=== PATIENT | male | born 1935 | race Caucasian/White ===

== ENCOUNTER 2016-10-21 20:30 | Emergency (ER) | payer MEDICARE, BC ==
[2016-10-21 21:09] VITALS: BP 111/53
--- NOTE | 2016-10-21 21:38 | UC ---
Lower Extremity/Ankle HPI - HPI Summary HPI Summary: about 3 hours ago, caught his foot in his pant and avulsed the nail of his left second digit. Currently on ASA, clopidogrel and coumadin due to vascular disease. Wound has continued to bleed despite light pressure and elevation. Diabetic, without foot sensation although has not been diagnosed as neuropathy. - History of Current Complaint Chief Complaint: UCLowerExtremity Stated Complaint: LEFT FOOT Time Seen by Provider: 10/21/16 21:36 Hx Obtained From: Patient, Family/Financial Analysis Consultant Onset/Duration: Sudden Onset Severity Initially: Moderate Severity Currently: Moderate Aggravating Factor(s): Standing Alleviating Factor(s): Elevation, Other - pressure - Risk Factors Gout Risk Factors: Negative DVT Risk Factors: Negative Septic Arthritis Risk Factor: Negative - Allergies/Home Medications Allergies/Adverse Reactions: Allergies Allergy/AdvReac Type Severity Reaction Status Date / Time Diazepam [From Valium] Allergy Severe LOW BLOOD Verified 10/21/16 21:09 PRESSURE AND "LOOPY" Home Medications: Home Medications Calcium Carbonate-Vitamin D [Calcium 500 + D] 1 tab PO 10/21/16 [History] Isosorbide Mononitrate ER TAB* [Imdur ER TAB*] 60 mg PO DAILY 10/21/16 [History Confirmed 10/21/16] Multiple Vitamins W/ Minerals [Ocuvite Eye Health Formul] 1 cap PO DAILY [History Confirmed 10/21/16] Spironolactone TAB* [Aldactone TAB*] 25 mg PO DAILY 10/21/16 [History Confirmed 10/21/16] PMH/Surg Hx/FS Hx/Imm Hx Endocrine History Of: Reports: Diabetes - type II Cardiovascular History Of: Reports: Cardiac Disorders - A-fib, Hypertension, Pacemaker/ICD - [id number], Congestive Heart Failure Psychological History Of: Reports: Anxiety - Surgical History Surgical History: Yes Surgery Procedure, Year, and Place: open heart -by pass, [facility]. cardiac stents x (since 1998), [facility]. pacemaker 2008, [facility]. cataract ablation 2008,. [facility],. [facility] 2014, [facility]. 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 Cardiovascular: Other - history of coronary artery disease. 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 Neurovascular: Decreased Sensation - both feet, with a history of amputations of digits of toes. Neurological: Weakness, Other - aphasic post stroke All Other Systems Reviewed And Are Negative: Yes Physical Exam Triage Information Reviewed: Yes Appearance: Ill-Appearing - elderly man, looks fatigued. Vital Signs: Initial Vital Signs Temp 98.3 F 10/21/16 21:04 Pulse 72 10/21/16 21:04 Resp 16 10/21/16 21:04 BP 111/53 10/21/16 21:04 Pulse Ox 100 10/21/16 21:04 Eyes: Positive: Conjunctiva Clear Neck: Positive: Supple Respiratory: Positive: Lungs clear Cardiovascular Exam: Other - irregular pulse. Cardiovascular: Positive: No Murmur Neurological: Positive: Alert Skin Exam: Other - left second digit with avulsion of the nail, steady ooze from lateral nail bed. Gelfoam and compressive dressing applied Lower Extremity Course/Dx - Course Course Of Treatment: gelfoam and light compressive dressing. - Differential Dx/Diagnosis Provider Diagnoses: nail avulsion, on anticoagulation. Discharge - Discharge Plan Condition: Stable Disposition: HOME Patient Education Materials: Nail Avulsion (ED) Additional Instructions: Follow up with Dr. Julian tomorrow as arranged. Hold tonight's warfarin and tomorrow morning's aspirin, but give clopidigrel in the morning. If you bleed through the dressing, please go to the emergency room for follow up.
[2016-10-21] MEDS ORDERED: Gelfoam 12-7 ADSORBABL SPONGE* 1 EA SPONGE ONE (21:57)
[2016-10-21] MEDS ORDERED: Gelfoam 12-7 ADSORBABL SPONGE* 1 EA SPONGE TOPICAL ONE (21:59)
== END 2016-10-21 22:49 | disposition home or self-care (01) ==
LOC: UCCORT 20:30
DX: S91.205A Unspecified open wound of left lesser toe(s) with damage to nail, initial encounter (principal); W22.8XXA Striking against or struck by other objects, initial encounter; Y93.9 Activity, unspecified; Y99.9 Unspecified external cause status; Z79.01 Long term (current) use of anticoagulants; Z79.82 Long term (current) use of aspirin; E11.9 Type 2 diabetes mellitus without complications; I48.91 Unspecified atrial fibrillation; I10 Essential (primary) hypertension; Z95.0 Presence of cardiac pacemaker; I50.9 Heart failure, unspecified; I25.10 Atherosclerotic heart disease of native coronary artery without angina pectoris; Z95.1 Presence of aortocoronary bypass graft; Z86.73 Personal history of transient ischemic attack (TIA), and cerebral infarction without residual deficits; Z88.8 Allergy status to other drugs, medicaments and biological substances
CPT/HCPCS: 99212; A9270-GY; G0463

== ENCOUNTER 2017-01-04 16:06 | Emergency (ER) | payer MEDICARE, BC ==
[2017-01-04 17:04] VITALS: BP 120/62
--- NOTE | 2017-01-04 17:38 | UC ---
General HPI - HPI Summary HPI Summary: sent here by PCP "for a cxr" for evaluation of "fluid in lungs" Denies Chest PAin and SOB---has had some swelling in legs but does weight himself daily and has not had any weight gain - History of Current Complaint Chief Complaint: UCLowerExtremity Stated Complaint: RT LEG SWELLING/WATER BLISTER Time Seen by Provider: 01/04/17 17:30 Hx Obtained From: Patient Onset/Duration: Gradual Onset, Lasting Days, Still Present Timing: Constant Onset Severity: Mild Current Severity: Mild Pain Intensity: 0 Associated Signs & Symptoms: Positive: Edema, SOB - baseline-usual. Negative: Chest Pain, Hemoptysis, Wheezing - Allergy/Home Medications Allergies/Adverse Reactions: Allergies Allergy/AdvReac Type Severity Reaction Status Date / Time Diazepam [From Valium] Allergy Severe LOW BLOOD Verified 01/04/17 16:55 PRESSURE AND "LOOPY" Home Medications: Home Medications Amoxicillin/Clavulanate TAB* [Augmentin TAB 875*] 2 tab PO BID 01/04/17 [ History Confirmed 01/04/17] PMH/Surg Hx/FS Hx/Imm Hx Previously Healthy: No Endocrine History: Diabetes Cardiovascular History: Cardiac Disease, Pacemaker/ICD, Congestive Heart Failure - Surgical History Surgical History: Yes Surgery Procedure, Year, and Place: open heart -by pass, [facility]. cardiac stents x 22(since 1998), [facility]. pacemaker 2008, [facility]. cataract ablation 2008,. L knee replacement 2006, [facility]. cataracts removal,. right great toe amputation 2014, [facility]. 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, [facility] - Family History Known Family History: Positive: Unknown - Social History Occupation: Retired Lives: With Family Alcohol Use: None Substance Use Type: None Smoking Status (MU): Never Smoked Tobacco Have You Smoked in the Last Year: No Review of Systems Constitutional: Negative Skin: Negative Eyes: Negative ENT: Negative Respiratory: Negative Cardiovascular: Negative Gastrointestinal: Negative Genitourinary: Negative Motor: Negative Neurovascular: Negative Musculoskeletal: Edema - both lower legs Neurological: Negative Psychological: Negative All Other Systems Reviewed And Are Negative: Yes Physical Exam Triage Information Reviewed: Yes Appearance: Ill-Appearing - chronic, Pain Distress - chronic illness, Thin Vital Signs: Initial Vital Signs Temp 97.2 F 01/04/17 16:56 Pulse 67 01/04/17 16:56 Resp 18 01/04/17 16:56 BP 120/62 01/04/17 16:56 Pulse Ox 100 01/04/17 16:56 Vital Signs Reviewed: Yes Eye Exam: Normal Eyes: Positive: Conjunctiva Clear ENT Exam: Normal ENT: Positive: Normal ENT inspection, Hearing grossly normal, Pharynx normal, TMs normal. Negative: Nasal congestion, Nasal drainage, Trismus, Muffled/ hoarse voice Dental Exam: Normal Neck exam: Normal Neck: Positive: Supple, Nontender Respiratory Exam: Normal Respiratory: Positive: Chest non-tender, No respiratory distress, No accessory muscle use, Rhonchi - right lung, Wheezing - right lung Cardiovascular Exam: Normal Cardiovascular: Positive: RRR, No Murmur, Pulses Normal, Brisk Capillary Refill Musculoskeletal Exam: Normal Musculoskeletal: Positive: Strength Intact, ROM Intact, Edema @ - both lower lungs Neurological Exam: Normal Neurological: Positive: Alert, Muscle Tone Normal Psychological Exam: Normal Psychological: Positive: Normal Response To Family Skin: Positive: Other - seeking wound clinic for chronic right leg issues Diagnostics - Radiology No standard instances Radiology Interpretation Completed By: Radiologist - worsening right pleural effusion Course/Dx - Course Course Of Treatment: transfer to [facility] by private car - Differential Dx - Multi-Symptom Differential Diagnoses: Other - CHK, PVD, Pleural effusion Provider Diagnoses: worsening right pleural effusion - Physician Notifications Discussed Patient Care With: Davion Cordova MD Time Discussed With Above Provider: 18:30 Instructed by Provider To: Transfer Discharge - Discharge Plan Condition: Fair Disposition: AGAINST MEDICAL ADVICE
--- NOTE | 2017-01-04 18:02 | RAD ---
INDICATION: Congestive heart failure COMPARISON: Most recent comparison chest x-rays dated June 06, 2016 TECHNIQUE: PA and lateral views of the chest were obtained. FINDINGS: There is been interval removal of the right-sided PICC line imaged on the prior chest x-ray. Again seen is a left upper chest cardiac pacemaker with 4 leads overlying the heart, increased from 2 on the previous chest x-ray. There are sternal wires, surgical clips as well as what appears to be a coronary artery stent at the expected location of the LAD artery. The heart and mediastinum are otherwise normal in size and contour. There is increased density obscuring the right lung base relative to the previous chest x-ray. More superiorly the right lung is adequately aerated. On the left there appears to be a small degree of costophrenic angle blunting. There is no radiographic evidence of free air beneath the diaphragm IMPRESSION: INTERVAL WORSENING OF RIGHT GREATER THAN LEFT DENSITIES WHICH COULD BE PLEURAL EFFUSIONS AND/OR COMPRESSIVE ATELECTASIS.
== END 2017-01-04 18:42 | disposition left against medical advice (07) ==
LOC: UCCORT 16:06
DX: J90 Pleural effusion, not elsewhere classified (principal)
CPT/HCPCS: 71020; 99213; G0463

== ENCOUNTER 2021-01-16 16:14 | Inpatient (IN) ==
[2021-01-16 17:18] LABS: Hematocrit 42 % (42-52); Hemoglobin 13.5 g/dL (14.0-18.0); Mean Corpuscular HGB Conc 32 g/dL (31-36); Mean Corpuscular Hemoglobin 28 pg (27-31); Mean Corpuscular Volume 89 fL (80-94); Mean Platelet Volume 9.2 fL (7.4-10.4); Platelet Count 198 10^3/uL (150-450); Red Blood Count 4.76 10^6 /uL (4.18-5.48); Red Cell Distribution Width 16 % (10-15); White Blood Count 6.5 10^3/uL (3.5-10.8)
[2021-01-16 17:43] LABS: ABS Lymphocytes 0.9 10^3/ul (1.0-4.8); ABS Monocytes 0.7 10^3/ul (0-0.8); ABS Neutrophils 4.9 10^3/ul (1.5-7.7); Anisocytosis 1+; Eosinophil % 0.7 %; Lymphocyte % 13.9 %
[2021-01-16 17:44] LABS: Troponin I 0.06 ng/mL (<0.03)
[2021-01-16 17:57] LABS: ALT 14 U/L (7-52); AST 21 U/L (13-39); Albumin 4.2 g/dL (3.2-5.2); Albumin/Globulin Ratio 1.4 (1-3); Alkaline Phosphatase 107 U/L (35-149); Anion Gap 10 mmol/L (2-11); Blood Urea Nitrogen 32 mg/dL (6-24); CO2 Carbon Dioxide 22 mmol/L (22-32); Calcium 9.6 mg/dL (8.6-10.3); Chloride 105 mmol/L (101-111); EGFR African American 59.4 (>60); EGFR Non-African American 49.1 (>60); Globulin 2.9 g/dL (2-4); Glucose 151 mg/dL (70-100); Potassium 4.5 mmol/L (3.5-5.0); Sodium 137 mmol/L (135-145); Total Protein 7.1 g/dL (6.4-8.9)
[2021-01-16] MEDS ORDERED: Iodixanol (CONTRAST) 320 MG/ML 100 ML SDV IV ONE (18:27)
[2021-01-16 20:30] LABS: Troponin I 0.06 ng/mL (<0.03)
[2021-01-16 20:44] LABS: INR 2.16 (0.86-1.15)
[2021-01-16] MEDS ORDERED: Furosemide 40 mg/4 ml IV VIAL IV ONE (21:41)
[2021-01-16] MEDS ORDERED: Dextrose 50% Syringe 50 ml 25 GM/50 ML SYRINGE IV PUSH PRN (23:59)
[2021-01-17 02:32] LABS: Troponin I 0.06 ng/mL (<0.03)
[2021-01-17 05:27] LABS: ABS Eosinophils 0.1 10^3/ul (0-0.6); ABS Monocytes 0.7 10^3/ul (0-0.8); ABS Neutrophils 4.4 10^3/ul (1.5-7.7); Eosinophil % 1.4 %; Hematocrit 42 % (42-52); Hemoglobin 13.3 g/dL (14.0-18.0); Mean Corpuscular HGB Conc 32 g/dL (31-36); Mean Corpuscular Hemoglobin 28 pg (27-31); Mean Corpuscular Volume 88 fL (80-94); Mean Platelet Volume 9.1 fL (7.4-10.4); Platelet Count 181 10^3/uL (150-450); Red Blood Count 4.72 10^6 /uL (4.18-5.48); Red Cell Distribution Width 16 % (10-15); White Blood Count 6.2 10^3/uL (3.5-10.8)
[2021-01-17 05:32] LABS: INR 2.12 (0.86-1.15)
[2021-01-17 05:48] LABS: Albumin 3.9 g/dL (3.2-5.2); Albumin/Globulin Ratio 1.3 (1-3); C Reactive Protein 13.77 mg/L (<8.01); Direct Bilirubin 0.4 mg/dL (0.03-0.18); Globulin 3.1 g/dL (2-4); Indirect Bilirubin 0.9 mg/dL (0.3-1.0); Total Bilirubin 1.3 mg/dL (0.2-1.0)
[2021-01-17] MEDS ORDERED: Senna TAB 8.6 mg TAB PO PRN (08:02)
[2021-01-17] MEDS ORDERED: Polyethylene Glycol 3350 17 GM PACKET PO PRN (08:02)
[2021-01-17] MEDS: Furosemide 40 mg/4 ml IV VIAL IV SLOW PU SCH ×2 (10:07→16:37)
[2021-01-17] MEDS: DULoxetine DR 60 mg CAP PO SCH (10:07)
[2021-01-17] MEDS ORDERED: Perflutren Lipid Microsphere 3 ML VIAL ONE (12:46)
[2021-01-17 14:08] LABS: Urine Appearance Clear; Urine Bilirubin Negative (Negative); Urine Blood 2+ (Negative); Urine Color Yellow; Urine Glucose Negative (Negative); Urine Ketones Negative (Negative); Urine Nitrite Negative (Negative); Urine Protein Negative (Negative); Urine Specific Gravity 1.011 (1.002-1.030); Urine Urobilinogen Negative (Negative)
[2021-01-17 14:14] LABS: Urine Bacteria Absent (Absent); Urine Red Blood Cell 3+(>10/hpf) (Absent); Urine White Blood Cell Absent (Absent)
[2021-01-17 15:35] LABS: Body Fluid Source Pleural Fluid
[2021-01-17 16:09] LABS: Body Fluid WBC 132 /mcL
[2021-01-17 16:10] LABS: Body Fluid Appearance Clear; Body Fluid Color Yellow
[2021-01-17 16:35] LABS: Calcium 9.1 mg/dL (8.6-10.3); EGFR African American 57.9 (>60); EGFR Non-African American 47.9 (>60); Potassium 4.7 mmol/L (3.5-5.0)
[2021-01-17 16:40] LABS: Body Fluid Mono 47 %; Body Fluid Total Cells Counted 200
[2021-01-18] MEDS: DULoxetine DR 60 mg CAP PO SCH (09:07)
[2021-01-18] MEDS: Furosemide 40 mg/4 ml IV VIAL IV SLOW PU SCH (09:44)
[2021-01-18 13:53] LABS: Glucose, BF 123 mg/dL
[2021-01-18 13:58] LABS: Lactate Dehydrogenase, BF 66 U/L
[2021-01-18 14:03] LABS: Fluid Type, Protein, Total PLEURAL; Total Protein, BF 2.5 g/dL
[2021-01-19 05:47] LABS: Anion Gap 9 mmol/L (2-11); Blood Urea Nitrogen 37 mg/dL (6-24); CO2 Carbon Dioxide 24 mmol/L (22-32); Calcium 8.8 mg/dL (8.6-10.3); Chloride 102 mmol/L (101-111); EGFR African American 47.3 (>60); EGFR Non-African American 39.1 (>60); Glucose 70 mg/dL (70-100); Potassium 4.7 mmol/L (3.5-5.0); Sodium 135 mmol/L (135-145)
[2021-01-19 08:40] LABS: % Iron Saturation 6 % (15-55); Iron 20 ug/dL (50-212); Total Iron Binding Capacity 349 mcg/dL (250-450); Transferrin 249 mg/dL (203-362); Unsaturated Iron Binding < 334 ug/dL
[2021-01-19 09:00] LABS: Ferritin 39.8 ng/mL (24-336)
[2021-01-19] MEDS: DULoxetine DR 60 mg CAP PO SCH (09:00)
[2021-01-20 05:58] LABS: Calcium 8.6 mg/dL (8.6-10.3); EGFR African American 45.5 (>60); EGFR Non-African American 37.6 (>60); Potassium 4.9 mmol/L (3.5-5.0)
[2021-01-20] MEDS: DULoxetine DR 60 mg CAP PO SCH (10:07)
[2021-01-20 10:32] LABS: Calcium 8.7 mg/dL (8.6-10.3); EGFR Non-African American 38.9 (>60); Potassium 4.8 mmol/L (3.5-5.0)
[2021-01-20 12:16] VITALS: BP 118/58
== END 2021-01-20 14:20 | DRG 291 ==
LOC: ED 16:14 → MEDTELE 23:53
PROVIDERS: ADMIT Internal Medicine; ATTEND Hospitalist